=== PATIENT | male | born 1990 | race American Indian/Alaskan Native ===

== ENCOUNTER 2016-11-21 04:02 | Emergency (ER) | payer BC ==
[2016-11-21 04:27] VITALS: BP 114/70
--- NOTE | 2016-11-21 04:48 | Emergency Department Report ---
HPI - General Chief Complaint: Sore Throat Time Seen by Provider: 11/21/16 04:48 - HPI HPI: Patient reported that 2 days down and coughing that gets worse at night. Reports generalized aches and chills. Cough is nonproductive. Reports nasal congestion. Denies any shortness of breath or chest pain. He said it hurts to swallow. Pain is 4-10 and denies any drooling. Denies any nausea or vomiting. Patient denies any medical problems. He is to get some medication. He did not take anything [id number] NSAID and to get some medicine from the hospital. ED Past Medical Hx - Past Medical History Previous Medical History?: No - Surgical History Past Surgical History?: Yes Additional Surgical History: wisdom teeth - Family History Family history: no significant - Social History Smoking Status: Current Every Day Smoker Substance Use Type: Alcohol - Medications Home Medications: Home Medications Medication Instructions Recorded Confirmed Last Taken Type Cetirizine HCl [ZyrTEC] 10 mg PO QAM #14 capsule 11/21/16 Unknown Rx Fluticasone [Flonase] 1 spray NS QDAY #1 bottle 11/21/16 Unknown Rx ED Review of Systems ROS: Stated complaint: THROAT PAIN Other details as noted in HPI Comment: All other systems reviewed and negative Constitutional: chills. denies: fever, malaise Eyes: denies: eye pain ENT: throat pain, congestion. denies: ear pain, dental pain, hearing loss Respiratory: cough. denies: orthopnea, shortness of breath, SOB with exertion, SOB at rest, stridor, wheezing Cardiovascular: denies: chest pain, palpitations, edema, syncope Gastrointestinal: denies: abdominal pain, nausea, vomiting Musculoskeletal: myalgia. denies: back pain, arthralgia Skin: denies: rash Neurological: denies: headache, numbness, paresthesias, confusion, abnormal gait , vertigo Physical Exam - Physical Exam Vital Signs: Vital Signs 11/21/16 04:23 Temperature 98.1 F Pulse Rate 72 Respiratory 18 Rate Blood Pressure 114/70 O2 Sat by Pulse 99 Oximetry General: This is a 26-year-old male well-nourished well-developed in no acute distress. Physical Exam: Head: Normocephalic atraumatic Mouth: Moist, no pharyngeal exudate or erythema. Uvula is midline and oral airway is patent. No facial swelling. No peritonsillar abscesses. Nose: mucosa pale and boggy. Clear Drainage. Maxillary and frontal sinuses nontender to palpate Neck: Supple, no C-spine tenderness, no tracheal deviation. Nontender to palpate. no adenopathy Ears: Bilateral TMs congested without erythema. Bilateral EAC without any redness swelling or drainage. Bilateral otitis nontender to palpate Abdomen: Soft, nontender to palpate in all quadrants, normal bowel sounds in all quadrant and negative CVA tenderness bilaterally. Eyes: Bilateral pupils equal and reactive to light, bilateral EOM intact. Bilateral sclera and conjunctiva without injection. Normal accommodation. Lungs: Clear to auscultate bilaterally no rhonchi wheezes or rales. Normal work of breathing extremity; No CCE. +2 pulses. No neurovascular compromise Cardiovascular: S1-S2, regular rate rhythm. No murmurs. Skin: clean Dry and intact no rash no lesions Psych: Normal mood and behavior ED Course Vital Signs 11/21/16 04:23 Temperature 98.1 F Pulse Rate 72 Respiratory 18 Rate Blood Pressure 114/70 O2 Sat by Pulse 99 Oximetry - Reevaluation(s) Reevaluation #1: 11/21/16 05:50 Patient stable throughout ED course. ED Medical Decision Making - Medical Decision Making ED Course: He is allergic rhinitis, cough and sore throat. Discussed with him that this similar physical findings he is allergic rhinitis and diagnosis was explained to him. Patient given Deltasone 60 mg by mouth in emergency room and discharged home with prescription for Flonase and Zyrtec.. Critical care attestation.: If time is entered above; I have spent that time in minutes in the direct care of this critically ill patient, excluding procedure time. ED Disposition Clinical Impression: Cough in adult Allergic rhinitis Qualifiers: Chronicity: acute Allergic rhinitis trigger: unspecified Allergic rhinitis seasonality: unspecified seasonality Qualified Code(s): J30.9 - Allergic rhinitis, unspecified Pharyngitis Qualifiers: Pharyngitis/tonsillitis etiology: unspecified etiology Qualified Code(s): J02.9 - Acute pharyngitis, unspecified Disposition: - TO HOME OR SELFCARE Is pt being admited?: No Does the pt Need Aspirin: No Condition: Stable Instructions: Allergic Rhinitis (ED), Acute Cough (ED), Pharyngitis (ED) Additional Instructions: Increase fluid intake Take medication as prescribed You can gargle with warm salt water as this will help his sore throat. Prescriptions: Cetirizine HCl [ZyrTEC] 10 mg PO QAM #14 capsule Fluticasone [Flonase] 1 spray NS QDAY #1 bottle Referrals: PRIMARY CARE, [Primary Care Provider] - 3-[address] [facility] [Outside] - 3-5 Days Forms: Work/School Release Form(ED)
[2016-11-21] MEDS ORDERED: DELTASONE PO ONE (05:51)
== END 2016-11-21 06:09 | disposition home or self-care (01) ==
LOC: ED 04:02
DX: J30.9 Allergic rhinitis, unspecified (principal); J02.9 Acute pharyngitis, unspecified; F17.200 Nicotine dependence, unspecified, uncomplicated
CPT/HCPCS: 99282; J7512

== ENCOUNTER 2020-12-31 05:46 | Emergency (ER) | payer SELFPAY ==
[2020-12-31 07:28] LABS: BUN/Creatinine Ratio 9; Blood Urea Nitrogen 10 mg/dL (9-20); Calcium 9.2 mg/dL (8.4-10.2); Hemolysis Index 4
[2020-12-31 07:31] LABS: Bilirubin,Urine NEG (Negative); Blood,Urine NEG (Negative); Color,Urine Yellow (Yellow); Mucus,Urine FEW /HPF; Protein,Urine <15 mg/dL mg/dL (Negative)
[2020-12-31 07:33] LABS: Basophils # (Auto) 0.1 K/mm3 (0.0-0.1); Eosinophils # (Auto) 0.4 K/mm3 (0.0-0.4); Eosinophils % (Auto) 5.3 % (0.0-4.3); Hematocrit 43.2 % (35.5-45.6); Lymphocytes # (Auto) 1.7 K/mm3 (1.2-5.4); Lymphocytes % (Auto) 25.3 % (13.4-35.0); Mean Corpuscular HGB Conc 35 % (32-34); Mean Corpuscular Volume 95 fl (84-94); Monocytes # (Auto) 0.6 K/mm3 (0.0-0.8); Monocytes % (Auto) 9.1 % (0.0-7.3); Platelet Count 288 K/mm3 (140-440); Red Blood Count 4.53 M/mm3 (3.65-5.03); Red Cell Distribution Width 14.4 % (13.2-15.2)
[2020-12-31 07:39] LABS: Amphetamine Screen,Urine Negative; Benzodiazepines Screen,Urine Negative; Cannabinoid Screen,Urine Negative; Methadone Screen,Urine Negative; Opiate Screen,Urine Negative
[2020-12-31 08:14] LABS: Cocaine Screen,Urine Positive
[2020-12-31] MEDS ORDERED: chlordiazePOXIDE 25 MG CAP PO PRN (08:49)
[2020-12-31] MEDS ORDERED: LORazepam 2 MG TAB PO PRN ×2 (08:49)
[2020-12-31] MEDS ORDERED: LORazepam 2 MG/ML VIAL IV PRN (08:49)
[2020-12-31] MEDS ORDERED: POTASSIUM CHLORIDE ER 20 MEQ TAB PO ONE (08:49)
[2020-12-31] MEDS ORDERED: DEXTROSE 50% IN WATER (25GM) 50 ML VIAL IV PRN (08:49)
--- NOTE | 2020-12-31 08:50 | Emergency Department Report ---
ED General Adult HPI - General Chief complaint: Psych Stated complaint: I am fine, I need a place to go, and I need detox PUI?: No Time Seen by Provider: 12/31/20 08:48 Source: patient Mode of arrival: Ambulatory Limitations: No Limitations - History of Present Illness Initial comments: The patient is a 30-year-old gentleman. He presents to the ER with a complaint of request for detox. He denies physical pain to myself. He denies homicidality, suicidality, and hallucinations. He reports that he is currently homeless. He reports that he has previously obtained prescriptions from [employer] and/or [facility]. He denies intravenous drug use. He consumes alcohol, and intranasal drugs. He denies headache, neck pain, chest pain, abdominal pain, shortness of breath, loss of taste and smell, Covid symptomatology, homicidality and suicidality. He is adamant that he is not suicidal. -: Gradual Improves with: none Worsens with: none Associated Symptoms: denies other symptoms - Related Data Home Medications Medication Instructions Recorded Confirmed Last Taken Bictegrav/Emtricit/Tenofov Ala 1 each PO DAILY 12/31/20 12/31/20 12/30/20 [Biktarvy 50-200-25 mg (Nf)] 1 Previous Rx's Medication Instructions Recorded Last Taken Type Cetirizine HCl [ZyrTEC] 10 mg PO QAM #14 capsule 11/21/16 Unknown Rx Fluticasone [Flonase] 1 spray NS QDAY #1 bottle 11/21/16 Unknown Rx Multivitamin with Folic Acid [Cvs 400 mcg PO QDAY #30 tablet 12/31/20 Unknown Rx One Daily Essential Tablet] Potassium Chloride [K-Dur] 20 meq PO BID #30 tab 12/31/20 Unknown Rx Allergies Allergy/AdvReac Type Severity Reaction Status Date / Time No Known Allergies Allergy Verified 11/21/16 04:27 ED Review of Systems ROS: Stated complaint: SUICIDAL THOUGHTS Other details as noted in HPI Comment: All other systems reviewed and negative Psychiatric: denies: homicidal thoughts, suicidal thoughts ED Past Medical Hx - Past Medical History Previous Medical History?: Yes Hx Psychiatric Treatment: Yes (Depression) - Surgical History Past Surgical History?: No Additional Surgical History: wisdom teeth - Social History Smoking Status: Current Every Day Smoker - Medications Home Medications: Home Medications Medication Instructions Recorded Confirmed Last Taken Type Cetirizine HCl [ZyrTEC] 10 mg PO QAM #14 capsule 11/21/16 12/31/20 Unknown Rx Fluticasone [Flonase] 1 spray NS QDAY #1 bottle 11/21/16 12/31/20 Unknown Rx Bictegrav/Emtricit/Tenofov Ala 1 each PO DAILY 12/31/20 12/31/20 12/30/20 History [Biktarvy 50-200-25 mg (Nf)] 1 Multivitamin with Folic Acid [Cvs 400 mcg PO QDAY #30 tablet 12/31/20 Unknown Rx One Daily Essential Tablet] Potassium Chloride [K-Dur] 20 meq PO BID #30 tab 12/31/20 Unknown Rx ED Physical Exam - General Limitations: No Limitations General appearance: alert, in no apparent distress - Head Head exam: Present: atraumatic, normocephalic - Eye Eye exam: Present: normal appearance, EOMI. Absent: nystagmus - ENT ENT exam: Present: normal exam, normal orophraynx, mucous membranes moist, normal external ear exam - Neck Neck exam: Present: normal inspection, full ROM. Absent: tenderness, m eningismus - Respiratory Respiratory exam: Present: normal lung sounds bilaterally. Absent: respiratory distress, wheezes, rales, rhonchi, stridor, decreased breath sounds - Cardiovascular Cardiovascular Exam: Present: regular rate, normal rhythm, normal heart sounds. Absent: bradycardia, tachycardia, irregular rhythm, systolic murmur, diastolic murmur, rubs, gallop - GI/Abdominal GI/Abdominal exam: Present: soft. Absent: distended, tenderness, guarding, rebound, rigid, pulsatile mass - Rectal Rectal exam: Present: deferred - Extremities Exam Extremities exam: Present: normal inspection, full ROM, other (2+ pulses noted in the bilateral upper and lower extremities. There is no palpable cord. negative Homans sign. Muscular compartments are soft. The pelvis is stable.). Absent: pedal edema, calf tenderness - Back Exam Back exam: Present: normal inspection, full ROM. Absent: tenderness, CVA tenderness (R), CVA tenderness (L), paraspinal tenderness, vertebral tenderness - Neurological Exam Neurological exam: Present: alert, oriented X3, normal gait, other (No facial droop. Tongue midline. Extraocular movements intact bilaterally. Facial sensation intact to light touch in V1, V2, V3 distribution bilaterally. 5 and a 5 strength in 4 extremities. Sensation intact to light touch in 4 extremities.). Absent: motor sensory deficit - Psychiatric Psychiatric exam: Present: normal affect, normal mood. Absent: homicidal ideation, suicidal ideation - Skin Skin exam: Present: warm, dry, intact, normal color. Absent: rash ED Course Vital Signs 12/31/20 12/31/20 06:40 10:54 Temperature 98.2 F 98.0 F Pulse Rate 80 86 Respiratory 18 20 Rate Blood Pressure 103/60 Blood Pressure 114/79 [Right] O2 Sat by Pulse 92 98 Oximetry - Reevaluation(s) Reevaluation #1: 12/31/20 12:13 Accu-Chek 89. Vital signs stable. Discharge with outpatient follow-up. ED Medical Decision Making - Lab Data Result diagrams: 12/31/20 06:57 12/31/20 06:57 Vital Signs 12/31/20 12/31/20 06:40 10:54 Temperature 98.2 F 98.0 F Pulse Rate 80 86 Respiratory 18 20 Rate Blood Pressure 103/60 Blood Pressure 114/79 [Right] O2 Sat by Pulse 92 98 Oximetry Lab Results 12/31/20 12/31/20 12/31/20 Range/Units 06:57 06:57 06:57 WBC (4.5-11.0) K/mm3 RBC (3.65-5.03) M/mm3 Hgb (11.8-15.2) gm/dl Hct (35.5-45.6) % MCV (84-94) fl MCH (28-32) pg MCHC (32-34) % RDW (13.2-15.2) % Plt Count (140-440) K/mm3 Lymph % (Auto) (13.4-35.0) % [place] % (Auto) (0.0-7.3) % Eos % (Auto) (0.0-4.3) % Baso % (Auto) (0.0-1.8) % Lymph # (Auto) (1.2-5.4) K/mm3 [place] # (Auto) (0.0-0.8) K/mm3 Eos # (Auto) (0.0-0.4) K/mm3 Baso # (Auto) (0.0-0.1) K/mm3 Seg Neutrophils % (40.0-70.0) % Seg Neutrophils # (1.8-7.7) K/mm3 Sodium 138 (137-145) mmol/L Potassium 3.4 L (3.6-5.0) mmol/L Chloride 97.5 L (98-107) mmol/L Carbon Dioxide 25 (22-30) mmol/L Anion Gap 19 mmol/L BUN 10 (9-20) mg/dL Creatinine 1.1 (0.8-1.3) mg/dL Estimated GFR > 60 ml/min BUN/Creatinine Ratio 9 % Glucose 71 L (75-100) mg/dL Calcium 9.2 (8.4-10.2) mg/dL Magnesium (1.7-2.3) mg/dL Total Creatine Kinase (55-170) units/L Urine Color (Yellow) Urine Turbidity (Clear) Urine pH (5.0-7.0) Ur Specific [place] (1.003-1.030) Urine Protein (Negative) mg/dL Urine Glucose (UA) (Negative) mg/dL Urine Ketones (Negative) mg/dL Urine Blood (Negative) Urine Nitrite (Negative) Urine Bilirubin (Negative) Urine Urobilinogen (<2.0) mg/dL Ur Leukocyte Esterase (Negative) Urine WBC (Auto) (0.0-6.0) /HPF Urine RBC (Auto) (0.0-6.0) /HPF U Epithel Cells (Auto) (0-13.0) /HPF Urine Mucus /HPF Salicylates < 0.3 L (2.8-20.0) mg/dL Urine Opiates Screen Urine Methadone Screen Acetaminophen 5.0 L (10.0-30.0) ug/mL Ur Barbiturates Screen Ur Phencyclidine Scrn Ur Amphetamines Screen U Benzodiazepines Scrn Urine Cocaine Screen U Marijuana (THC) Screen Drugs of Abuse Note Plasma/Serum Alcohol (0-0.07) % 12/31/20 12/31/20 12/31/20 Range/Units 06:57 06:57 06:57 WBC 6.8 (4.5-11.0) K/mm3 RBC 4.53 (3.65-5.03) M/mm3 Hgb 15.0 (11.8-15.2) gm/dl Hct 43.2 (35.5-45.6) % MCV 95 H (84-94) fl MCH 33 H (28-32) pg MCHC 35 H (32-34) % RDW 14.4 (13.2-15.2) % Plt Count 288 (140-440) K/mm3 Lymph % (Auto) 25.3 (13.4-35.0) % [place] % (Auto) 9.1 H (0.0-7.3) % Eos % (Auto) 5.3 H (0.0-4.3) % Baso % (Auto) 1.0 (0.0-1.8) % Lymph # (Auto) 1.7 (1.2-5.4) K/mm3 [place] # (Auto) 0.6 (0.0-0.8) K/mm3 Eos # (Auto) 0.4 (0.0-0.4) K/mm3 Baso # (Auto) 0.1 (0.0-0.1) K/mm3 Seg Neutrophils % 59.3 (40.0-70.0) % Seg Neutrophils # 4.0 (1.8-7.7) K/mm3 Sodium (137-145) mmol/L Potassium (3.6-5.0) mmol/L Chloride (98-107) mmol/L Carbon Dioxide (22-30) mmol/L Anion Gap mmol/L BUN (9-20) mg/dL Creatinine (0.8-1.3) mg/dL Estimated GFR ml/min BUN/Creatinine Ratio % Glucose (75-100) mg/dL Calcium (8.4-10.2) mg/dL Magnesium 2.00 (1.7-2.3) mg/dL Total Creatine Kinase 324 H (55-170) units/L Urine Color (Yellow) Urine Turbidity (Clear) Urine pH (5.0-7.0) Ur Specific [place] (1.003-1.030) Urine Protein (Negative) mg/dL Urine Glucose (UA) (Negative) mg/dL Urine Ketones (Negative) mg/dL Urine Blood (Negative) Urine Nitrite (Negative) Urine Bilirubin (Negative) Urine Urobilinogen (<2.0) mg/dL Ur Leukocyte Esterase (Negative) Urine WBC (Auto) (0.0-6.0) /HPF Urine RBC (Auto) (0.0-6.0) /HPF U Epithel Cells (Auto) (0-13.0) /HPF Urine Mucus /HPF Salicylates (2.8-20.0) mg/dL Urine Opiates Screen Urine Methadone Screen Acetaminophen (10.0-30.0) ug/mL Ur Barbiturates Screen Ur Phencyclidine Scrn Ur Amphetamines Screen U Benzodiazepines Scrn Urine Cocaine Screen U Marijuana (THC) Screen Drugs of Abuse Note Plasma/Serum Alcohol 0.08 H (0-0.07) % 12/31/20 12/31/20 Range/Units Unknown Unknown WBC (4.5-11.0) K/mm3 RBC (3.65-5.03) M/mm3 Hgb (11.8-15.2) gm/dl Hct (35.5-45.6) % MCV (84-94) fl MCH (28-32) pg MCHC (32-34) % RDW (13.2-15.2) % Plt Count (140-440) K/mm3 Lymph % (Auto) (13.4-35.0) % [place] % (Auto) (0.0-7.3) % Eos % (Auto) (0.0-4.3) % Baso % (Auto) (0.0-1.8) % Lymph # (Auto) (1.2-5.4) K/mm3 [place] # (Auto) (0.0-0.8) K/mm3 Eos # (Auto) (0.0-0.4) K/mm3 Baso # (Auto) (0.0-0.1) K/mm3 Seg Neutrophils % (40.0-70.0) % Seg Neutrophils # (1.8-7.7) K/mm3 Sodium (137-145) mmol/L Potassium (3.6-5.0) mmol/L Chloride (98-107) mmol/L Carbon Dioxide (22-30) mmol/L Anion Gap mmol/L BUN (9-20) mg/dL Creatinine (0.8-1.3) mg/dL Estimated GFR ml/min BUN/Creatinine Ratio % Glucose (75-100) mg/dL Calcium (8.4-10.2) mg/dL Magnesium (1.7-2.3) mg/dL Total Creatine Kinase (55-170) units/L Urine Color Yellow (Yellow) Urine Turbidity Clear (Clear) Urine pH 6.0 (5.0-7.0) Ur Specific [place] 1.014 (1.003-1.030) Urine Protein <15 mg/dl (Negative) mg/dL Urine Glucose (UA) Neg (Negative) mg/dL Urine Ketones Tr (Negative) mg/dL Urine Blood Neg (Negative) Urine Nitrite Neg (Negative) Urine Bilirubin Neg (Negative) Urine Urobilinogen 2.0 (<2.0) mg/dL Ur Leukocyte Esterase Neg (Negative) Urine WBC (Auto) 2.0 (0.0-6.0) /HPF Urine RBC (Auto) 1.0 (0.0-6.0) /HPF U Epithel Cells (Auto) < 1.0 (0-13.0) /HPF Urine Mucus Few /HPF Salicylates (2.8-20.0) mg/dL Urine Opiates Screen Negative Urine Methadone Screen Negative Acetaminophen (10.0-30.0) ug/mL Ur Barbiturates Screen Negative Ur Phencyclidine Scrn Negative Ur Amphetamines Screen Negative U Benzodiazepines Scrn Negative Urine Cocaine Screen Positive U Marijuana (THC) Screen Negative Drugs of Abuse Note Disclamer Plasma/Serum Alcohol (0-0.07) % - Medical Decision Making Differential diagnosis, including but not limited to: Alcohol consumption, cocaine use, electrolyte derangement, encounter for behavioral health screening examination, encounter for medical screening examination Assessment and plan: 30-year-old gentleman, who is afebrile, with reassuring vital signs, clinically sober, who walks with a steady gait, with a GCS of 15, with no acute medical complaints today, who initially presented last night with a complaint of suicidality. The patient is awake, alert, oriented, sober at this time, walks with a steady gait, he is not homicidal, he is not suicidal, he has no access to guns or firearms, and he denies acute medical complaints at this time. He is asking for resources for detox, and for homeless shelters. As he is clinically sober at this time, not homicidal, not suicidal, exhibits decision-making capacity and is free from distracting injury, does not meet criteria for 1013 hold or involuntary hold. Laboratory studies reviewed and appreciated. Psychiatric recommendations reviewed and appreciated. Have requested repeat Accu-Chek, vital signs are unremarkable, outpatient resources have been provided to this patient. Presuming repeat Accu-Chek within normal limits, we can discontinued 2013, and have him follow-up as an outpatient. Critical care attestation.: If time is entered above; I have spent that time in minutes in the direct care of this critically ill patient, excluding procedure time. ED Disposition Clinical Impression: Alcohol use, Cocaine use, Encounter for behavioral health screening, Encounter for medical screening examination, Hypokalemia Disposition: DC-01 TO HOME OR SELFCARE Is pt being admited?: No Does the pt Need Aspirin: No Condition: Good Additional Instructions: Please follow-up with outpatient resources that have been provided to the patient. Avoid consumption of alcohol, cocaine, smoke products, and recreational drugs. Consumption of the aforementioned may lead to addiction, , disability, paralysis, and loss of quality of life. Follow-up with an outpatient primary care doctor within the next week. Follow- up with an outpatient mental health professional or psychiatrist within the next week. Please return to the emergency room right away with new pain, worsened pain, migration of pain, projectile vomiting, change in mental status, confusion, inability to tolerate liquid feeds, change in mental status, homicidality, suicidality, or any new, worsened or different symptoms not present on the initial emergency room evaluation. Professional and Agency Contacts To help [facility] (31/12) [place] Crisis Line: Suicide Prevention Line: Crisis Text Line: Text START to 385036 Emergency: 911 Outpatient COMMUNITY Behavioral Health Resources: [facility]: [facility] [address] [place], [place] [address] [facility] [address] [place] [address] Saturday thru Saturday - 8am - 5pm Call to schedule an assessment for mental health and substance abuse programs [facility] Address: [address] [place] [address] Saturday thru Saturday- 7am-2pm [facility] Address: [address] [place] [id number] Saturday thru Saturday: 8:30AM-5PM SUBSTANCE ABUSE PROGRAMS: [facility]: Location: [place], [place] [employer] Address: [address] [place] [address] [facility]: Address: [address] [place] [address] [facility]: Address: [address] [place] [address] [facility] Community: Address: [address] [place] [address] [facility] Address: [address] [place] [address]. Please contact above numbers to attempt placement into free based program. [facility] Males only Admission at 7am Sat to Sat Address: [address] [place] [address] Client Engagement [phone] Regular program admission occurs Saturday through Saturday at 7:00 amand operates on a first come, first serve basis.Because we cant anticipate program availability in advance andprogram spots are in high demand, we recommend arriving early. Space fills up fast! Next steps can include: Assignment to a [facility] program bed Connection to and placement in a partner program, or Referral to a partner agency [facility] [place] Admission at 4:30pm daily Address: [address] [place] [address] [facility] Admission from 8am to 10am Daily No intake until 06/06/20 Address: [address] [place] [address] Prescriptions: Multivitamin with Folic Acid [[facility]vs One Daily Essential Tablet] 400 mcg PO QDAY #30 tablet Potassium Chloride [K-Dur] 20 meq PO BID #30 tab Referrals: [facility] [Outside] - 3-5 Days [facility] [Outside] - 3-5 Days [facility] [Provider Group] - 3-5 Days
[2020-12-31 10:56] VITALS: BP 114/79
--- NOTE | 2020-12-31 11:05 | Consultation ---
History of Present Illness - Reason for Consult Consult date: 12/31/20 Reason for consult: Suicidal thoughts - History of Present Psychiatric Illness Jonathon Michaels is a 30 year old male with a history of ADHD who presents to the ED for suicidal thoughts. In my interview with the patient, he admits using cocaine on and off for the past two years. He reports spending about a $1,000 per month. Patient reports that he is homeless and lives in his car. He states he wants to go to a detox program. The patient denies any current suicidal ideation and denies and hallucinations. PAST PSYCHIATRIC HISTORY Diagnoses: ADHD Suicide attempts or Self-harm behavior: Denies Prior psychiatric hospitalizations: Yes Substance Abuse history: Cocaine, Crack Previous psychiatric medications tried: Adderall Outpatient treatment: yes SOCIAL HISTORY Marital Status: Single Living Arrangements: Homeless Employment Status: unemployed Access to guns/weapons: Denied Education: 2 year college History of Abuse: Denied Legal History: None reported REVIEW OF SYSTEMS Constitutional: Negative for weight loss ENT: Negative for stridor Respiratory: Negative for cough or hemoptysis All other systems reviewed and are negative MENTAL STATUS EXAMINATION General Appearance and Behavior: Age appropriate, dressed appropriately, calm and cooperative Cooperation: Participating Psychomotor Behavior: psychomotor normal Mood: calm Affect and affective range: Congruent with stated mood Thought Process: goal directed Thought Content: with normal limits Speech: Normal volume, Regular rate and rhythm, Intellectual Functioning: Average Suicidal Ideation: Denied Homicidal Ideation: Denied Hallucinations: Denied Delusions: None elicited Impulse Control: Unimpaired Insight and Judgment: Limited insight and judgment, Memory: Normal Attention: Undivided Orientation: Alert, oriented Assessment and Plan (1) Alcohol Dependence Treatment plan Risks, benefits and alternatives of medications discussed with the patient, questions answered and consent obtained from patient. PSYCHOTHERAPY: Supportive psychotherapy provided MEDICAL: Per primary team DELIRIUM PRECAUTIONS: Please re-orient patient frequently, keep lights on during the day, and minimize benzodiazepines and opiates as these medications could worsen patient's confusion. ADDICTION MEDICINE PHYSICIAN: Per medical team DISPOSITION: Do not recommend acute inpatient psychiatric hospitalization at this time. Patient was informed that if suicidal/homicidal ideation/withdrawal symptoms arise, He should immediately seek for emergent assistance including but not limited to crisis hot line and emergency room. The meat cutting block repairer to give the patient resources for a penitentiary, transportation pass, CBT, med management and alcohol rehab programs The patient to follow up with outpatient psych in 7 to 14 days upon discharge The patient to abstain from alcohol use FOLLOW-UP: Will sign off Thank you for the consult. Please contact with any questions and/or concerns. Case staffed with Dr. Pompa Medications and Allergies Allergies Allergy/AdvReac Type Severity Reaction Status Date / Time No Known Allergies Allergy Verified 11/21/16 04:27 Home Medications Medication Instructions Recorded Confirmed Last Taken Type Cetirizine HCl [ZyrTEC] 10 mg PO QAM #14 capsule 11/21/16 12/31/20 Unknown Rx Fluticasone [Flonase] 1 spray NS QDAY #1 bottle 11/21/16 12/31/20 Unknown Rx Bictegrav/Emtricit/Tenofov Ala 1 each PO DAILY 12/31/20 12/31/20 12/30/20 History [Biktarvy 50-200-25 mg (Nf)] 1 Active Meds: Active Medications Chlordiazepoxide HCl (Chlordiazepoxide 25 Mg Cap) 50 mg PO Q1HR PRN PRN Reason: CIWA-Ar 8-15 Dextrose (Dextrose 50% In Water (25gm) 50 Ml Vial) 50 gm IV Q30MIN PRN; Protocol PRN Reason: Hypoglycemia Lorazepam (Lorazepam 2 Mg Tab) 2 mg PO Q1HR PRN PRN Reason: CIWA-Ar 8-15 Lorazepam (Lorazepam 2 Mg Tab) 4 mg PO Q1HR PRN PRN Reason: CIWA-Ar 16-25 Lorazepam (Lorazepam 2 Mg/Ml Vial) 4 mg IV Q15MIN PRN PRN Reason: CIWA-Ar >25 Mental Status Exam - Vital signs Last Vital Signs Temp 98.0 F 12/31/20 10:54 Pulse 86 12/31/20 10:54 Resp 20 12/31/20 10:54 BP 114/79 12/31/20 10:54 Pulse Ox 98 12/31/20 10:54 Results Result Diagrams: 12/31/20 06:57 12/31/20 06:57 Abnormal lab results 12/31/20 12/31/20 12/31/20 Range/Units 06:57 06:57 06:57 MCV (84-94) fl MCH (28-32) pg MCHC (32-34) % Rusk % (Auto) (0.0-7.3) % Eos % (Auto) (0.0-4.3) % Potassium 3.4 L (3.6-5.0) mmol/L Chloride 97.5 L (98-107) mmol/L Glucose 71 L (75-100) mg/dL Total Creatine Kinase (55-170) units/L Salicylates < 0.3 L (2.8-20.0) mg/dL Acetaminophen 5.0 L (10.0-30.0) ug/mL Plasma/Serum Alcohol (0-0.07) % 12/31/20 12/31/20 12/31/20 Range/Units 06:57 06:57 06:57 MCV 95 H (84-94) fl MCH 33 H (28-32) pg MCHC 35 H (32-34) % Rusk % (Auto) 9.1 H (0.0-7.3) % Eos % (Auto) 5.3 H (0.0-4.3) % Potassium (3.6-5.0) mmol/L Chloride (98-107) mmol/L Glucose (75-100) mg/dL Total Creatine Kinase 324 H (55-170) units/L Salicylates (2.8-20.0) mg/dL Acetaminophen (10.0-30.0) ug/mL Plasma/Serum Alcohol 0.08 H (0-0.07) % All other labs normal.
== END 2020-12-31 14:14 | disposition home or self-care (01) ==
LOC: ED 05:46
DX: Z04.6 Encounter for general psychiatric examination, requested by authority (principal); Z13.30 Encounter for screening examination for mental health and behavioral disorders, unspecified; Z20.822 Contact with and (suspected) exposure to COVID-19; E87.6 Hypokalemia; F10.10 Alcohol abuse, uncomplicated; F14.90 Cocaine use, unspecified, uncomplicated; F32.9 Major depressive disorder, single episode, unspecified; F17.200 Nicotine dependence, unspecified, uncomplicated; Y90.9 Presence of alcohol in blood, level not specified; Z79.899 Other long term (current) drug therapy
CPT/HCPCS: 36415; 80048; 80307; 81001; 82550; 82962; 83735; 85025; 99283; U0003; 80320; G0480